=== PATIENT | female | born 1995 | race Caucasian/White ===

== ENCOUNTER 2016-11-17 20:07 | Emergency (ER) | payer SELFPAY ==
[2016-11-17 20:35] VITALS: BP 127/82
--- NOTE | 2016-11-17 21:09 | ER Document Report ---
ED General - General Chief Complaint: Other Stated Complaint: POSSIBLE Time Seen by Provider: 11/17/16 21:08 Mode of Arrival: Ambulatory Notes: Patient here for test. States that she is . Breast sensitivity. Lower abdominal cramping. Has had some mild bleeding so she wants to make sure she is not having a miscarriage or something like that. TRAVEL OUTSIDE OF THE [place] IN LAST 30 DAYS: No Past Medical History - General Information source: Patient - Social History Smoking Status: Never Smoker Family History: None Patient has suicidal ideation: No Patient has homicidal ideation: No Renal/ Medical History: Denies: Hx Peritoneal Dialysis Review of Systems - Review of Systems Constitutional: No symptoms reported EENT: No symptoms reported Cardiovascular: No symptoms reported Respiratory: No symptoms reported Genitourinary: Hematuria Female Genitourinary: Irregular period Neurological/Psychological: No symptoms reported Physical Exam - Vital signs Vitals: Temp Pulse Resp BP Pulse Ox 98.9 F 71 16 127/82 H 99 11/17/16 20:32 11/17/16 20:32 11/17/16 20:32 11/17/16 20:32 11/17/16 20:32 Interpretation: Normal - General General appearance: Appears well, Alert - HEENT Head: Normocephalic, Atraumatic Eyes: Normal Pupils: PERRL - Respiratory Respiratory status: No respiratory distress Chest status: Nontender Breath sounds: Normal Chest palpation: Normal - Cardiovascular Rhythm: Regular Heart sounds: Normal auscultation Murmur: No - Abdominal Inspection: Normal Distension: No distension Bowel sounds: Normal Tenderness: Nontender Organomegaly: No organomegaly - Neurological Neuro grossly intact: Yes Cognition: Normal Orientation: AAOx4 [place] Coma Scale Eye Opening: Spontaneous Nam Coma Scale Verbal: Oriented [place] Coma Scale Motor: Obeys Commands [place] Coma Scale Total: 15 Speech: Normal Motor strength normal: LUE, RUE, LLE, RLE Sensory: Normal Course - Re-evaluation Re-evalutation: 11/17/16 22:07 There is no evidence of patient is . No evidence of UTI. Reassurance was given to the patient. Comfortable at this time discharging. - Vital Signs Vital signs: Temp Pulse Resp BP Pulse Ox 98.9 F 71 16 127/82 H 99 11/17/16 20:32 11/17/16 20:32 11/17/16 20:32 11/17/16 20:32 11/17/16 20:32 11/17/16 22:07 Labs- All tests 24 hr 11/17/16 20:50 Urine Color YELLOW Urine Appearance SLIGHTLY-CLOUDY Urine pH 7.0 Ur Specific [place] 1.008 Urine Protein NEGATIVE Urine Glucose (UA) NEGATIVE Urine Ketones NEGATIVE Urine Blood MODERATE H Urine Nitrite NEGATIVE Urine Bilirubin NEGATIVE Urine Urobilinogen NEGATIVE Ur Leukocyte Esterase TRACE H Urine WBC (Auto) 1 Urine RBC (Auto) 1 Squamous Epi Cells Auto 5 Urine Mucus (Auto) RARE Urine Ascorbic Acid NEGATIVE Urine HCG, Qual NEGATIVE - Laboratory Laboratory results interpreted by me: 11/17/16 20:50 Urine Blood MODERATE H Ur Leukocyte Esterase TRACE H Discharge - Discharge Clinical Impression: test negative Condition: Good Disposition: HOME, SELF-CARE Additional Instructions: Your test was unremarkable. Did not find anything wrong with you today. If you begin to have worsening symptoms please return for further evaluation or follow-up with your regular medical providers. HOME CARE INSTRUCTIONS & INFORMATION: Thank you for choosing us for your medical needs. We hope you're satisfied with the care you received. After you leave, you must properly care for your problem and, at the same time, observe its progress. Any condition can change. Some illnesses can change rapidly over hours or days. If your condition worsens, return to the Emergency Department or see your physician promptly. ABOUT YOUR LABORATORY TEST: If you had laboratory tests, the results have been reviewed by the Emergency Physician. Some test results (for example cultures) may not be available for several days. You will be contacted if any test result shows you need additional treatment. Please be certain the ED has a correct telephone number and address where you can be reached. ABOUT YOUR SIGNATURE: Signature of this document acknowledges to followin. Understanding that you received emergency treatment and that you may be released before al medical problems are known or treated. Please be certain the ED has a correct phone number & address where you can be reached. 2. Acknowledgement that you will arrange for follow-up care as recommended. 3. Authorization for the Emergency Physician to provide information to your follow-up Physician in order to maximize your care. AT ANY TIME, IF YOUR SYMPTOMS CHANGE SIGNIFICANTLY OR WORSEN OR YOU DEVELOP NEW SYMPTOMS, RETURN TO THE EMERGENCY DEPARTMENT IMMEDIATELY FOR RE-EVALUATION. OUR GOAL IS TO PROVIDE EXCELLENT MEDICAL CARE! WE HOPE THAT WE HAVE MET YOUR EXPECTATIONS DURING YOUR EMERGENCY DEPARTMENT VISIT AND THAT YOU FEEL YOU HAVE RECEIVED EXCELLENT CARE!
[2016-11-17 21:43] LABS: APPEARANCE,URINE SLIGHTLY-CLOUDY; BILIRUBIN,URINE NEGATIVE (NEGATIVE); GLUCOSE, URINE NEGATIVE (NEGATIVE); KETONES,URINE NEGATIVE (NEGATIVE); LEUKOCYTE ESTERASE,URINE TRACE (NEGATIVE); NITRITE,URINE NEGATIVE (NEGATIVE); PROTEIN,URINE NEGATIVE (NEGATIVE); URINE SPECIFIC GRAVITY 1.008; UROBILINOGEN,URINE NEGATIVE mg/dL (<2.0)
== END 2016-11-17 22:16 | disposition home or self-care (01) ==
LOC: ER 20:07
DX: Z32.02 Encounter for pregnancy test, result negative (principal); R10.30 Lower abdominal pain, unspecified
CPT/HCPCS: 81001; 81025; 99282

== ENCOUNTER → 2017-01-07 | Outpatient (CLI) | payer MEDICAID ==
--- NOTE | 2017-01-07 13:53 | WOMENS IMAGING REPORT ---
EXAM DESCRIPTION: U/S BREAST UNILATERAL, COMPL COMPLETED DATE/TIME: 01/07/2017 12:47 pm REASON FOR STUDY: PAINFUL BREASTS N64.4 MASTODYNIA COMPARISON: None TECHNIQUE: Static and Realtime grayscale interrogation of the entire right breast(s) acquired. Selec gloria color doppler/spectral images saved to PACS. LIMITATIONS: None. FINDINGS: Masses:No cystic or solid masses identified Architecture:No alteration of normal morphology. No skin thickening. No edema. Other: None. IMPRESSION: No suspicious findings detected by ultrasound. BIRAD: 1 Negative. RECOMMENDATION: RECOMMENDED FOLLOW-UP: Follow-up as clinically indicated. COMMENT: The [employer] ([employer]) has developed recommendations for screening MRI of the breasts in certain patient populations, to be used in conjunction with mammography. Breast MRI s urveillance may be appropriate for women with more than 20% lifetime risk of developing breast cancer as determined by genetic testing, significant family history of the disease, or history of mantle r adiation for Hodgkins Disease. ACR Practice Guidelines 2008. TECHNICAL DOCUMENTATION: FINDING NUMBER: (1) ASSESSMENT: (1) JOB ID: [id number] [employer]- All Rights Reserved
--- NOTE | 2017-01-07 13:53 | WOMENS IMAGING REPORT ---
EXAM DESCRIPTION: U/S BREAST UNILATERAL, COMPL COMPLETED DATE/TIME: 01/07/2017 12:47 pm REASON FOR STUDY: PAINFUL BREASTS N64.4 MASTODYNIA COMPARISON: None TECHNIQUE: Static and Realtime grayscale interrogation of the entire left breast(s) acquired. Select ed color doppler/spectral images saved to PACS. LIMITATIONS: None. FINDINGS: Masses:No cystic or solid masses identified Architecture:No alteration of normal morphology. No skin thickening. No edema. Other: None. IMPRESSION: No suspicious findings detected by ultrasound. BIRAD: 1 Negative. RECOMMENDATION: RECOMMENDED FOLLOW-UP: Follow-up as clinically indicated. COMMENT: The [employer] ([employer]) has developed recommendations for screening MRI of the breasts in certain patient populations, to be used in conjunction with mammography. Breast MRI s urveillance may be appropriate for women with more than 20% lifetime risk of developing breast cancer as determined by genetic testing, significant family history of the disease, or history of mantle r adiation for Hodgkins Disease. ACR Practice Guidelines 2008. TECHNICAL DOCUMENTATION: FINDING NUMBER: (1) ASSESSMENT: (1) JOB ID: [id number] [employer]- All Rights Reserved
== END ==
LOC: WI 11:43
PROVIDERS: ATTEND Physician Assistant
DX: N64.4 Mastodynia (principal)
CPT/HCPCS: 76641

== ENCOUNTER → 2017-02-25 | Outpatient (CLI) | payer MEDICAID ==
[2017-02-25 12:07] LABS: BACTERIA (WET MOUNT) 4+ BACTERIA SEEN; EPITHELIALS (WET MOUNT) 4+ EPITHELIALS SEEN; T.VAGINALIS (WET MOUNT) NO TRICHOMONAS SEEN; WBCS (WET MOUNT) FEW WBCS SEEN; YEAST (WET MOUNT) BUDDING YEAST SEEN
[2017-02-25 13:40] LABS: CHLAM PCR DETECTED (NOT DETECT); GON PCR NOT DETECTED (NOT DETECT)
== END ==
LOC: LAB 12:03
PROVIDERS: ATTEND Nurse Practitioner Family
DX: N89.8 Other specified noninflammatory disorders of vagina (principal)
CPT/HCPCS: 87086; 87210; 87491; 87591

== ENCOUNTER 2018-03-20 17:15 | Emergency (ER) | payer SELFPAY ==
--- NOTE | 2018-03-20 19:37 | ER Document Report ---
ED Medical Screen (RME) - General Chief Complaint: Lower Abdominal Pain Stated Complaint: ABDOMINAL PAIN Time Seen by Provider: 03/20/18 19:28 Primary Care Provider: CASSIE SMITH FNP-C [Primary Care Provider] - Follow up as needed Mode of Arrival: Ambulatory Information source: Patient Notes: 22-year-old female presents emergency department with complaints of right upper quadrant pain for the last week and vaginal bleeding. Patient describes her abdominal pain as a sharp and stabbing sensation in the right upper quadrant. She denies any radiation of the pain. She states she has been taking Motrin for the pain and it has been helping. She denies any exacerbating factors. She denies any fever, chills, nausea, vomiting, diarrhea, constipation, dysuria, hematuria, vaginal discharge. She states that she has been having vaginal bleeding since March 11. She denies any unprotected intercourse. I have greeted and performed a rapid initial assessment of this patient. A comprehensive ED assessment and evaluation of the patient, analysis of test results and completion of the medical decision making process will be conducted by additional ED providers. PHYSICAL EXAMINATION: GENERAL: Well-appearing, well-nourished and in no acute distress. HEAD: Atraumatic, normocephalic. EYES: Pupils equal round extraocular movements intact, conjunctiva are normal. ENT: Nares patent NECK: Normal range of motion LUNGS: No respiratory distress Musculoskeletal: Normal range of motion NEUROLOGICAL: Normal speech, normal gait. TRAVEL OUTSIDE OF THE [place] IN LAST 30 DAYS: No - Related Data Allergies/Adverse Reactions: No Known Allergies Allergy (Verified 12/13/16 12:52) Past Medical History - Social History Chew tobacco use (# tins/day): No Frequency of alcohol use: None Drug Abuse: None Renal/ Medical History: Denies: Hx Peritoneal Dialysis - Immunizations Hx Diphtheria, Pertussis, Tetanus Vaccination: No History of Influenza Vaccine for 11/2016 - 04/2017 Season: No Physical Exam - Vital signs Vitals: Temp Pulse Resp BP Pulse Ox 99.1 F 78 14 121/61 100 03/20/18 17:35 03/20/18 17:35 03/20/18 17:35 03/20/18 17:35 03/20/18 17:35 Course - Vital Signs Vital signs: Temp Pulse Resp BP Pulse Ox 99.1 F 78 14 121/61 100 03/20/18 17:35 03/20/18 17:35 03/20/18 17:35 03/20/18 17:35 03/20/18 17:35 Doctor's Discharge - Discharge Referrals: CASSIE SMITH, PROPOSAL DEVELOPMENT MANAGER-C [Primary Care Provider] - Follow up as needed
[2018-03-20 20:13] LABS: ABSOLUTE LYMPHOCYTES (AUTO) 1.6 10^3/uL (0.5-4.7); ABSOLUTE MONOCYTES (AUTO) 0.5 10^3/uL (0.1-1.4); ABSOLUTE NEUT (AUTO) 3.7 10^3/uL (1.7-8.2); BASOPHILS % (AUTO) 0.4 % (0-2); EOSINOPHILS % (AUTO) 0.8 % (0-6); HEMOGLOBIN 12.8 g/dL (12.0-15.5); LYMPHOCYTES % (AUTO) 27.5 % (13-45); MEAN CORPUSCULAR HEMOGLOBIN 31.5 pg (27.0-33.4); MEAN CORPUSCULAR HGB CONC 33.8 g/dL (32.0-36.0); MEAN CORPUSCULAR VOLUME 93 fl (80-97); MONOCYTES % (AUTO) 8.7 % (3-13); PLATELET COUNT 270 10^3/uL (150-450); RED BLOOD COUNT 4.08 10^6/uL (3.72-5.28); SEGMENTED NEUTROPHILS % (AUTO) 62.6 % (42-78); TOTAL CELLS COUNTED % (AUTO) 100 %; WHITE BLOOD COUNT 5.9 10^3/uL (4.0-10.5)
[2018-03-20 20:14] LABS: APPEARANCE,URINE CLEAR; BILIRUBIN,URINE NEGATIVE (NEGATIVE); COLOR,URINE YELLOW; GLUCOSE, URINE NEGATIVE (NEGATIVE); KETONES,URINE NEGATIVE (NEGATIVE); LEUKOCYTE ESTERASE,URINE TRACE (NEGATIVE); NITRITE,URINE NEGATIVE (NEGATIVE); PROTEIN,URINE 30 mg/dL (NEGATIVE); URINE SPECIFIC GRAVITY 1.021
[2018-03-20 20:36] LABS: ALANINE AMINOTRANSFERASE 22 U/L (9-52); ALBUMIN 4.3 g/dL (3.5-5.0); ALKALINE PHOSPHATASE 75 U/L (38-126); ANION GAP 9 (5-19); ASPARTATE AMINO TRANSFERASE 21 U/L (14-36); BILIRUBIN,DIRECT 0.3 mg/dL (0.0-0.4); BILIRUBIN,TOTAL 0.3 mg/dL (0.2-1.3); BLOOD UREA NITROGEN 10 mg/dL (7-20); CARBON DIOXIDE 27 mmol/L (22-30); CHLORIDE 104 mmol/L (98-107); GLUCOSE 101 mg/dL (75-110); LIPASE 58.3 U/L (23-300); POTASSIUM 4.3 mmol/L (3.6-5.0); TOTAL PROTEIN 7.7 g/dL (6.3-8.2)
--- NOTE | 2018-03-20 21:07 | RADIOLOGY REPORT (SQ) ---
US ABDOMEN LIMITED HISTORY: Right upper quadrant pain. COMPARISON: None. TECHNIQUE: Grayscale and color Doppler imaging of the right upper quadrant was performed. FINDINGS: The liver has normal echotexture without focal lesion identified. The main portal vein has normal hepatopetal flow. The gallbladder is contracted, limiting evaluation. No shadowing gallstones are seen. The gallbladder wall is borderline thickened measuring 3.5 mm. The common bile duct is normal caliber. The pancreas is not visualized due to overlying bowel gas. No hydronephrosis or shadowing renal stones are identified. The right kidney measures 11.1 cm in length. The visualized portions of the IVC and aorta are patent. IMPRESSION: Contracted gallbladder, which limits evaluation. No gallstones are seen.
--- NOTE | 2018-03-20 21:38 | ER Document Report ---
ED General - General Chief Complaint: Lower Abdominal Pain Stated Complaint: ABDOMINAL PAIN Time Seen by Provider: 03/20/18 19:28 Primary Care Provider: CASSIE SMITH FNP-C [Primary Care Provider] - Follow up as needed Mode of Arrival: Ambulatory TRAVEL OUTSIDE OF THE [place] IN LAST 30 DAYS: No - HPI Notes: Patient presents to the emergency department for evaluation. For she complains of abdominal pain. She points to the right upper quadrant. She states is been there over a week. She describes it as an aching. It worsened with walking. Is not changed by food. She denies any associated nausea or vomiting. Normal bowel movements. No dysuria. No vaginal discharge. She also notes she has had vaginal bleeding for the last 10 days. She states normally she has a 28-30-day cycle. She started having some very mild vaginal bleeding approximately 10 days ago. She changes her pad 3 times a day. She is currently sexually active. 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 - Related Data Allergies/Adverse Reactions: No Known Allergies Allergy (Verified 12/13/16 12:52) Past Medical History - General Information source: Patient - Social History Smoking Status: Never Smoker Chew tobacco use (# tins/day): No Frequency of alcohol use: None Drug Abuse: None Family History: None Patient has suicidal ideation: No Patient has homicidal ideation: No Renal/ Medical History: Denies: Hx Peritoneal Dialysis - Immunizations Hx Diphtheria, Pertussis, Tetanus Vaccination: No Review of Systems - Review of Systems Constitutional: No symptoms reported EENT: No symptoms reported Cardiovascular: No symptoms reported Respiratory: No symptoms reported Gastrointestinal: See HPI Female Genitourinary: Irregular period Skin: No symptoms reported Neurological/Psychological: No symptoms reported Physical Exam - Vital signs Vitals: Temp Pulse Resp BP Pulse Ox 99.1 F 78 14 121/61 100 03/20/18 17:35 03/20/18 17:35 03/20/18 17:35 03/20/18 17:35 03/20/18 17:35 Interpretation: Normal - Notes Notes: Vital signs reviewed, please refer to chart. Patient is normocephalic, atraumatic. Pupils equal round, reactive to light. Neck is supple without meningismus. Heart is regular rate and rhythm. Lungs are clear to auscultation bilaterally. Abdomen is soft, nontender, normoactive bowel sounds throughout. Extremities without cyanosis, clubbing, edema. Peripheral pulses are equal. Skin is warm and dry. Patient is awake, alert, neurological exam is nonfocal. Course - Re-evaluation Re-evalutation: 03/20/18 21:34 Patient presents to the emergency department for evaluation. She laboratory and imaging as ordered by triage. At this time the patient has no abdominal tenderness. Her vaginal bleeding is minimal. Her laboratory evaluations are unremarkable. I more strongly suspect a musculoskeletal etiology for her pain. It is not changed in any way by food and she has no other constitutional symptoms. I will send her home with anti-inflammatories and close follow-up. She is also to follow-up with her nicking machine operator. She is to return to the ED with worsening or new concerning symptoms of any sort. - Vital Signs Vital signs: Temp Pulse Resp BP Pulse Ox 99.1 F 78 14 121/61 100 03/20/18 17:35 03/20/18 17:35 03/20/18 17:35 03/20/18 17:35 03/20/18 17:35 - Laboratory Result Diagrams: 03/20/18 19:50 03/20/18 19:50 Laboratory results interpreted by me: 03/20/18 19:50 Urine Protein 30 H Urine Blood LARGE H Urine Urobilinogen 4.0 H Ur Leukocyte Esterase TRACE H Discharge - Discharge Clinical Impression: Abdominal pain, Abnormal vaginal bleeding Condition: Good Disposition: HOME, SELF-CARE Instructions: Abdominal Pain ([facility]), Vaginal Bleeding ([facility]) Additional Instructions: Take medication as prescribed, with food. Follow-up with your primary care physician as well as your nicking machine operator. Return to the emergency department with worsening or new concerning symptoms. Forms: Parent Work Note Referrals: CASSIE SMITH FNP-C [Primary Care Provider] - Follow up as needed
[2018-03-20 21:52] VITALS: BP 113/67
== END 2018-03-20 21:54 | disposition home or self-care (01) ==
LOC: ER 17:15
DX: R10.30 Lower abdominal pain, unspecified (principal); R10.11 Right upper quadrant pain; N93.9 Abnormal uterine and vaginal bleeding, unspecified
CPT/HCPCS: 36415; 76705; 80053; 81001; 81025; 83690; 85025; 99284

== ENCOUNTER 2019-04-12 10:48 | Outpatient (CLI) | payer MEDICAID ==
[2019-04-12 11:48] LABS: APPEARANCE,URINE CLEAR; BILIRUBIN,URINE NEGATIVE (NEGATIVE); COLOR,URINE YELLOW; GLUCOSE, URINE 50 mg/dL (NEGATIVE); KETONES,URINE NEGATIVE (NEGATIVE); LEUKOCYTE ESTERASE,URINE NEGATIVE (NEGATIVE); NITRITE,URINE NEGATIVE (NEGATIVE); PROTEIN,URINE NEGATIVE (NEGATIVE); URINE SPECIFIC GRAVITY 1.006; UROBILINOGEN,URINE NEGATIVE mg/dL (<2.0)
[2019-04-12 12:07] LABS: URINE AMPHETAMINES SCREEN NEGATIVE; URINE BARBITURATES SCREEN NEGATIVE; URINE BENZODIAZEPINES SCREEN NEGATIVE; URINE COCAINE SCREEN NEGATIVE; URINE METHADONE SCREEN NEGATIVE; URINE PHENCYCLIDINE SCREEN NEGATIVE
[2019-04-12 12:21] LABS: URINE MARIJUANA (THC) SCREEN UNCONFIRMED POSITIVE
[2019-04-12] MEDS ORDERED: ACETAMINOPHEN 325 MG TABLET PO ONE (12:31)
[2019-04-12] MEDS ORDERED: ACETAMINOPHEN 325 MG TABLET ONE (12:41)
== END 2019-04-12 12:55 | disposition home or self-care (01) ==
LOC: LC 10:48
PROVIDERS: ATTEND Obstetrics & Gynecology Gynecology
PROC: 4A1HXCZ Monitoring of Products of Conception, Cardiac Rate, External Approach (ICD-10-PCS; principal; 2019-04-12)
DX: Z04.1 Encounter for examination and observation following transport accident (principal); Z3A.28 28 weeks gestation of pregnancy
CPT/HCPCS: 59899; 81001; 80307; G0480 ×2; J3490; 80349